=== PATIENT | female | born 1955 | race Caucasian/White ===

== ENCOUNTER 2016-05-14 12:27 | Emergency (ER) | payer OTHER ==
[2016-05-14 12:31] VITALS: RESP 14; TEMP 97.9; O2SAT 96
[2016-05-14] MEDS ORDERED: LIDOCAINE 2% JELLY 20 ML (UROJECT) ONE (12:46)
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
[2016-05-14 14:48] VITALS: BP 126/78; PULSE 76
== END 2016-05-14 14:47 | disposition home or self-care (01) ==
DX: S06.0X0A Concussion without loss of consciousness, initial encounter (principal); S01.511A Laceration without foreign body of lip, initial encounter; V16.4XXA Pedal cycle driver injured in collision with other nonmotor vehicle in traffic accident, initial encounter; Y92.410 Unspecified street and highway as the place of occurrence of the external cause; Y99.8 Other external cause status; Y93.89 Activity, other specified